=== PATIENT | male | born 2000 | race African-American/Black ===

== ENCOUNTER 2025-01-25 23:46 | Emergency (ER) | payer MEDICAID ==
[2025-01-26 00:30] LABS: CLARITY URINE CLEAR (CLEAR); COLOR URINE YELLOW (YELLOW); GLUCOSE URINE NEGATIVE (NEGATIVE); KETONES URINE 2+ (NEGATIVE); LEUKOCYTE ESTERASE URINE NEGATIVE (NEGATIVE); NITRITE URINE NEGATIVE (NEGATIVE); OCCULT BLOOD URINE TRACE (NEGATIVE); PH URINE 5.5 (4.5-8.0); PROTEIN URINE NEGATIVE (NEGATIVE); SPECIFIC GRAVITY URINE 1.017 (1.005-1.030); UROBILINOGEN URINE 0.2 E.U./dL (0.2-1.0)
[2025-01-26 00:49] LABS: BASOPHILS % 0.5 % (0.0-2.0); EOSINOPHILS % 0.1 % (0.0-5.0); HEMATOCRIT. 47.7 % (42.0-52.0); HEMOGLOBIN. 15.6 g/dL (14.0-18.0); LYMPHOCYTES % 22.9 % (20.0-50.0); MEAN PLATELET VOLUME 7.8 fl (7.4-10.4); MONOCYTES % 13.6 % (2.0-8.0); NEUTROPHILS % 62.9 % (40.0-76.0); PLATELET 272 x1000/uL (130-400); RED BLOOD CELL COUNT 5.49 mill/uL (4.7-6.1); RED CELL DISTRIBUTION WIDTH 11.8 % (11.6-14.6)
[2025-01-26 00:59] LABS: CREATININE 1.0 mg/dL (0.6-1.3); UREA NITROGEN BLOOD 7 mg/dL (9-23)
[2025-01-26 01:01] LABS: ASPARTATE AMINOTRANSFERASE 42 IU/L (<34); BILIRUBIN DIRECT 0.4 mg/dL (<=3.0); BILIRUBIN TOTAL 1.1 mg/dL (0.1-1.0)
[2025-01-26 01:02] LABS: PROTEIN TOTAL 8.0 g/dL (6.0-8.3)
[2025-01-26] MEDS: ONDANSETRON 4MG ODT PO ONE (01:08)
[2025-01-26] MEDS: ACETAMINOPHEN 325MG TABLET PO ONE (01:45)
[2025-01-26] MEDS ORDERED: ONDA4TAB50 MT (03:29)
[2025-01-26] MEDS: ONDANSETRON HCL 4MG/2ML INJ IV ONE (03:30)
[2025-01-26] MEDS: KETOROLAC 15MG/ML VIAL IV ONE (03:32)
[2025-01-26] MEDS: SODIUM CHLORIDE 0.9% 1,000 ML IV ONE (03:32)
[2025-01-26 04:18] VITALS: BP 127/74; PULSE 71; RESP 19; O2SAT 99
[2025-01-26 05:07] LABS: BACTERIA URINE NONE SEEN; RBC URINE NONE SEEN /hpf (0-2); SQUAMOUS EPITHELIAL CELL URINE RARE /lpf (RARE/1+); WBC URINE 0-2 /hpf (0-2)
== END 2025-01-26 04:26 | disposition home or self-care (01) ==
LOC: ER 01-26 00:15
DX: K29.70 Gastritis, unspecified, without bleeding (principal); R11.2 Nausea with vomiting, unspecified; R06.6 Hiccough
CPT/HCPCS: 80076; 80048; 81003; 80320; 83690; 85025; 36415; 96361; 96374; 96375; 99284; Q0162; J1885; J2405; J7030; Z7610; G0480